=== PATIENT | male | born 1970 | race Caucasian/White ===

== ENCOUNTER 2022-05-11 02:43 | Emergency (ER) | payer SELFPAY ==
[~2022-05-11] VITALS: Ht 183 cm; Wt 99.8 kg
[2022-05-11] MEDS ORDERED: ceFAZolin INJECTION 1,000 MG in NS (IVPB) 50 ML IV STA (02:54)
[2022-05-11] MEDS ORDERED: TETANUS,DIPTH,PERTUSS P/F (BOOSTRIX) 0.5 ML VIAL IM ONE (03:00)
[2022-05-11] MEDS ORDERED: LACTATED RINGERS 1,000 ML IV ONE (03:00)
[2022-05-11 03:04] LABS: BASOPHILS # (AUTO) 0.1 10^3/uL (0.0-0.1); BASOPHILS % (AUTO) 1 % (0-10); EOSINOPHILS # (AUTO) 0.3 10^3/uL (0.0-0.3); EOSINOPHILS % (AUTO) 4 % (0-10); HEMATOCRIT 45 % (40-54); HEMOGLOBIN 16.3 g/dL (13.3-17.7); LYMPHOCYTES # (AUTO) 3.1 10^3/uL (1.0-4.0); LYMPHOCYTES % (AUTO) 35 % (12-44); MEAN CORPUSCULAR HEMOGLOBIN 34 pg (25-34); MEAN CORPUSCULAR HGB CONC 36 g/dL (32-36); MEAN CORPUSCULAR VOLUME 94 fL (80-99); MEAN PLATELET VOLUME 9.5 fL (9.0-12.2); MONOCYTES # (AUTO) 0.5 10^3/uL (0.0-1.0); MONOCYTES % (AUTO) 5 % (0-12); NEUTROPHILS # (AUTO) 4.8 10^3/uL (1.8-7.8); NEUTROPHILS % (AUTO) 54 % (42-75); PLATELET COUNT 253 10^3/uL (130-400); WHITE BLOOD COUNT 8.8 10^3/uL (4.3-11.0)
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
[2022-05-11 03:14] LABS: ALBUMIN 4.2 GM/DL (3.2-4.5); CHLORIDE 108 MMOL/L (98-107); INR 0.9 (0.8-1.4); POTASSIUM 4.7 MMOL/L (3.6-5.0); PROTHROMBIN TIME PATIENT 13.1 SEC (12.2-14.7); SODIUM 136 MMOL/L (135-145)
[2022-05-11 03:15] LABS: AMYLASE 78 U/L (25-125)
[2022-05-11 03:16] LABS: CALCIUM 8.7 MG/DL (8.5-10.1)
[2022-05-11 03:17] LABS: GLUCOSE 126 MG/DL (70-105); TOTAL PROTEIN 7.9 GM/DL (6.4-8.2)
[2022-05-11 03:18] LABS: CARBON DIOXIDE 12 MMOL/L (21-32)
[2022-05-11 03:19] LABS: BILIRUBIN,TOTAL 0.3 MG/DL (0.1-1.0)
[2022-05-11 03:20] LABS: ALKALINE PHOSPHATASE 66 U/L (40-136); CREATININE SERUM 0.83 MG/DL (0.60-1.30); GFR ESTIMATED 105
[2022-05-11 03:22] LABS: BUN/CREATININE RATIO 7
[2022-05-11 03:23] LABS: ALANINE AMINOTRANSFERASE 29 U/L (0-55)
[2022-05-11 03:26] LABS: BILIRUBIN,URINE NEGATIVE (NEGATIVE); CLARITY,URINE CLEAR; COLOR,URINE YELLOW; GLUCOSE, URINE (UA) NEGATIVE (NEGATIVE); KETONES,URINE NEGATIVE (NEGATIVE); LEUKOCYTE ESTERASE ,URINE NEGATIVE (NEGATIVE); NITRITE,URINE NEGATIVE (NEGATIVE); PROTEIN,URINE NEGATIVE (NEGATIVE)
[2022-05-11 03:28] LABS: ACETAMINOPHEN < 10 UG/ML (10-30)
[2022-05-11 03:34] LABS: BACTERIA,URINE NEGATIVE /HPF; RBC,URINE 0-2 /HPF
[2022-05-11 03:40] LABS: AMPHETAMINE SCREEN, URINE NEGATIVE (NEGATIVE); BARBITURATE SCREEN URINE NEGATIVE (NEGATIVE); BENZODIAZEPINES SCREEN URINE NEGATIVE (NEGATIVE); CANNABINOID SCREEN, URINE NEGATIVE (NEGATIVE); COCAINE SCREEN URINE NEGATIVE (NEGATIVE); METHADONE STAT NEGATIVE (NEGATIVE); OPIATE SCREEN URINE NEGATIVE (NEGATIVE); OXYCODONE STAT NEGATIVE (NEGATIVE); PROPOXYPHENE STAT NEGATIVE (NEGATIVE); TRICYCLIC ANTIDEPRESSANTS SCRE NEGATIVE (NEGATIVE)
[2022-05-11] MEDS ORDERED: LIDOCAINE 1% INJ 10 ML VIAL ONE (03:43)
[2022-05-11] MEDS ORDERED: NS IV 500 ML 500 ML IV SCH (04:00)
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
[2022-05-11] MEDS ORDERED: LIDOCAINE UROJET 2% GEL 10 ML PKG TOP ONE (04:15)
[2022-05-11 04:38] VITALS: BP 113/89
[2022-05-11 04:45] VITALS: BP 106/93
[2022-05-11 05:00] VITALS: BP 109/81
[2022-05-11 05:14] VITALS: BP 109/81
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
--- NOTE | 2022-05-11 05:46 | Diagnostic Imaging Report ---
PROCEDURE: CT neck soft tissue with contrast. TECHNIQUE: Multiple contiguous axial images were obtained through the neck after the administration of contrast. Auto Exposure Controls were utilized during the CT exam to meet ALARA standards for radiation dose reduction. INDICATION: Left facial laceration Submandibular glands appear normal. Parotid glands appear normal. Neurovascular bundles appear normal. Parapharyngeal fat planes are well-preserved. There is no prevertebral soft tissue swelling. There is no pharyngeal mucosal thickening. Epiglottis appears normal. Thyroid is unremarkable. Larynx is normal. IMPRESSION: There appears to be a laceration in the left posterior neck with extension to the trapezius muscle. Dictated by: Dictated on workstation # [id number]
== END 2022-05-11 05:13 | disposition short-term general hospital (02) ==
LOC: ER 02:46
DX: S11.91XA Laceration without foreign body of unspecified part of neck, initial encounter (principal); S41.111A Laceration without foreign body of right upper arm, initial encounter; S01.312A Laceration without foreign body of left ear, initial encounter; F10.229 Alcohol dependence with intoxication, unspecified; F17.210 Nicotine dependence, cigarettes, uncomplicated; Y90.7 Blood alcohol level of 200-239 mg/100 ml; Z23 Encounter for immunization; Z28.310 Unvaccinated for COVID-19; Z20.822 Contact with and (suspected) exposure to COVID-19; X58.XXXA Exposure to other specified factors, initial encounter
CPT/HCPCS: 51702; 70450; 70486; 70491; 71045; 72125; 73060; 80053; 80306; 81000; 82150; 85025; 85610; 85730; 86850; 86900; 86901; 86920; 87636; 93041; 99285; G0480 ×2; P9016; 36415; 80320; 80329; 90471; 90715; 96361; 96365